=== PATIENT | female | born 1960 | race Caucasian/White ===

== ENCOUNTER → 2018-09-23 | Outpatient (CLI) | payer OTHER, SELFPAY ==
--- NOTE | 2018-09-23 14:41 | RAD_ITS ---
STUDY: X-RAY - LUMBAR SPINE REASON FOR EXAM: Female, 58 years old. Back pain TECHNIQUE: 5 view(s) of the lumbar spine were obtained. COMPARISON: None FINDINGS: There is straightening of the normal lumbar lordosis. There is no substantial scoliosis. There is a normal alignment of the vertebrae. Normal vertebral bodies and endplates. Mild degenerative changes at L2-L3 and L4-L5.There is no demonstrated fracture. The soft tissue structures are unremarkable. RAD/L/S Spine Min 4 Views IMPRESSION: No acute abnormality. Essentially unremarkable for age. Electronically Signed: Valeriy Riggs MD at 15:00 EDT , Service support ,
== END | disposition home or self-care (01) ==
LOC: HPRAD 14:40
PROVIDERS: Family Provider Internal Medicine; PCP Internal Medicine; Referring Provider Internal Medicine; Visit Provider Internal Medicine
DX: M54.16 Radiculopathy, lumbar region (principal)
CPT/HCPCS: 72110

== ENCOUNTER → 2018-10-01 | Outpatient (CLI) | payer OTHER, SELFPAY ==
--- NOTE | 2018-10-01 12:04 | RAD_ITS ---
STUDY: X-RAY - PELVIS AND LEFT HIP REASON FOR EXAM: Hip pain. TECHNIQUE: 2 views of the pelvis and hip. COMPARISON: None. FINDINGS: Normal visualized soft tissue structures. Normal bilateral iliac wings, sacroiliac joints and visualized sacrum. Normal bilateral superior and inferior pubic rami. Normal pubic symphysis. Normal bilateral ischial tuberosities. There is mild left hip arthrosis with marginal osteophytes of the femoral head and acetabulum, and mild narrowing of the central hip joint. RAD/HIP, UNI W/ Pelvis 2-3 Views IMPRESSION: Mild left hip arthrosis. Electronically Signed: Franklin Dietz MD at 14:35 EDT Tel , Service support ,
== END | disposition home or self-care (01) ==
LOC: HPRAD 12:02
PROVIDERS: Family Provider Internal Medicine; PCP Internal Medicine; Referring Provider Internal Medicine; Visit Provider Internal Medicine
DX: M25.552 Pain in left hip (principal)
CPT/HCPCS: 73502

== ENCOUNTER → 2018-10-11 | Outpatient (CLI) | payer OTHER, SELFPAY ==
--- NOTE | 2018-10-11 09:49 | STRESSREP_ITS ---
Stress Test Report Exercise myocardial perfusion stress test. 58-year-old lady with a history of chest pain. Stress protocol: Resting EKG demonstrates sinus rhythm with a rate of 61 bpm normal intervals are noted resting blood pressures 118/78 mmHg. The patient exercised according to regular Sebas protocol for total duration of 9 minutes the maximum heart rate was 164 bpm which was 101% of maximum predicted heart rate the maximum workload was 10.4 metabolic equivalents. At rest there were no ST or T wave changes noted suggest ischemia at peak exercise upsloping ST changes were noted with no meet the criteria for ischemia. The resting blood pressure was 118/78 with a peak blood pressure 170/86. Rate pressure product was 27,500. Occasional enzo ature ventricular complexes were noted. The test was terminated due to leg fatigue no chest pain was noted. Myocardial perfusion protocol. 11.8 mCi of technetium 99m sestamibi was injected at rest. The patient exercised according to regular Sebas protocol for 9 minutes and at peak exercise 33.9 mCi of technetium 99m sestamibi was injected stress images were obtained stress and rest images were reconstructed and compared in the short axis vertical long horizontal long axis. Gated images were also obtained Perfusion SPECT analysis: Review of the stress images demonstrate normal uptake of tracer noted in all areas of the myocardium the resting images similarly demonstrate normal uptake of tracer noted in all the rest of the myocardium. No areas of reversibility are noted suggest ischemia no previous infarct is noted. Gated SPECT analysis: The gated ejection fraction is noted to be 80%. Conclusion: Normal exercise myocardial perfusion stress test at a high workload. Preserved ejection fraction. Good functional aerobic capacity.
== END | disposition home or self-care (01) ==
PROVIDERS: Family Provider Internal Medicine; PCP Internal Medicine; Referring Provider Internal Medicine; Visit Provider Internal Medicine
DX: K76.0 Fatty (change of) liver, not elsewhere classified (principal); R07.9 Chest pain, unspecified
CPT/HCPCS: 78452; 93017; A9500; A4216

== ENCOUNTER → 2018-11-02 09:27 | Outpatient (CLI) | payer OTHER, SELFPAY ==
--- NOTE | 2018-11-02 09:31 | BI_ITS ---
MAMMOGRAPHY - BILATERAL SCREENING 3-D TOMOSYNTHESIS REASON FOR EXAM: Female, 58 years old. Bilateral Screening 3-D tomosynthesis PERTINENT HISTORY: No significant family history. TECHNIQUE: 2-D mammograms and 3-D Tomosynthesis of the breast (s) were performed. CAD was performed. COMPARISON: No comparison mammograms available at this time. If any prior films become available, an addendum to this report can be generated. FINDINGS: The breast composition is heterogeneously dense that can obscure small breast masses. Scattered benign calcifications are seen. No dense spiculated masses or suspicious microcalcifications are identified. No architectural distortion is identified. There is no skin thickening or retraction. BI/SCREEN MAMM (CAD) W/REBA BILAT IMPRESSION: No mammographic signs of malignancy. Routine yearly mammograms recommended. ASSESSMENT CATEGORY: BIRADS Category 2: Benign. A letter regarding these results will be sent to the patient by the facility within 30 days. FOLLOW UP RECOMMENDATION: Yearly follow up mammogram recommended. (A) Approximately 10% of breast cancers are not detected by mammography. A normal mammogram should not delay biopsy of a clinically suspicious abnormality. Electronically Signed: Zuhair Marc MD at 14:12 EDT , Service support ,
--- NOTE | 2018-11-02 09:31 | US_ITS ---
STUDY: ABDOMINAL ULTRASOUND - RIGHT UPPER QUADRANT REASON FOR VISIT: Female, 58 years old. Fatty liver TECHNIQUE: Ultrasound evaluation of the right upper quadrant was performed with real-time and static carlson-scale imaging. TECHNICAL QUALITY: Limited. Examination limited due to a combination of factors including obesity and bowel gas. COMPARISON: None. FINDINGS: Liver: The liver measures 14.8 cm. There is increased echogenicity consistent with fatty infiltration. The bile ducts are within normal limits. There is hepatic color flow. The direction of portal flow is hepatopetal. There is no demonstrated mass lesion. Gallbladder: Normal distended gallbladder. The gallbladder wall measures 2.4 mm. There is a negative sonographic Armijo's sign. There is no pericholecystic fluid. There are no gallstones. Common Bile Duct (C.B.D.): The common bile duct measures 2.9 mm. Pancreas: Normal size of the head, body and tail of the pancreas. There is normal echogenicity of the pancreas. There is no demonstrated pancreatic mass or cyst. Right Kidney: Normal size of the right kidney. The right kidney measures 10.8 cm. Normal renal cortex. The right cortex measures 1.3 cm. Tiny 8 mm cyst. There is no right hydronephrosis. US/Liver IMPRESSION: Fatty liver. No acute abnormality. Electronically Signed: Valeriy Riggs MD at 17:12 EDT , Service support ,
--- NOTE | 2018-11-02 10:00 | BD_ITS ---
STUDY: DUAL ENERGY X-RAY ABSORPTIOMETRY / DXA REASON FOR EXAM: Female, 58 years old. The patient is postmenopausal. No loss of height. TECHNIQUE: Bone Mineral Density (BMD) measurements of lumbar spine and bilateral hips were obtained. COMPARISON: None. FINDINGS: Lumbar Spine (L1-L4): g/cm2 (1.206) / T-score (0.3) / Z-score (1.5) Findings are suggestive of normal bone density with a low fracture risk. Left Femur Total: g/cm2 (1.089) / T-score (0.6) / Z-score (1.6) Left Femoral Neck: g/cm2 (1.083) / T-score (0.3) / Z-score (1.5) Right Femur Total: g/cm2 (1.081) / T-score (0.6) / Z-score (1.5) Right Femoral Neck: g/cm2 (1.111) / T-score (0.5) / Z-score (1.7) BD/Dexa Bone Density Study IMPRESSION: The patient is considered normal as outlined below according to World Mike Organization (WHO) criteria with a low fracture risk. Reference Information: The T-score is the number of standard deviations above or below the standard which is normal for young adults at their peak bone mineral density. The World Health Organization (WHO) interprets the T-scores as follows: Above -1 Normal bone density Between -1 and -2.5 Osteopenia Equal to / or below -2.5 Osteoporosis As a practical clinical guideline, osteopenia may be graded as follows: Mild -1 through -1.5 Moderate -1.6 through -2.0 Severe -2.1 through -2.4 The Z-score is the number of standard deviations above or below age-matched controls. A Z-score of less than -1.5 would be considered abnormal. References: 1. NIH Osteoporosis and Related Bone Diseases http://www.osteo.org 2. International Society for Clinical Densitometry http://www.iscd.org 3. National Osteoporosis Foundation http://www.nof.org Electronically Signed: Jose Ureña, at 9:14 EDT , Service support ,
== END ==
PROVIDERS: Family Provider Internal Medicine; PCP Internal Medicine; Referring Provider Internal Medicine; Visit Provider Internal Medicine
DX: K76.0 Fatty (change of) liver, not elsewhere classified (principal); Z78.0 Asymptomatic menopausal state; Z12.31 Encounter for screening mammogram for malignant neoplasm of breast
CPT/HCPCS: 76705; 77063; 77067; 77080

== ENCOUNTER → 2019-03-02 | Outpatient (CLI) | payer OTHER, SELFPAY ==
--- NOTE | 2019-03-02 10:10 | RAD_ITS ---
STUDY: X-RAY - LEFT TIBIA AND FIBULA REASON FOR EXAM: Female, 59 years old. Trauma TECHNIQUE: 3 view(s) of the tibia and fibula were obtained. COMPARISON: None. FINDINGS: Normal visualized tibia. Normal visualized fibula. Diffuse soft tissue swelling of the lateral calf.. RAD/Tibia & Fibula 2 Views IMPRESSION: Soft tissue swelling of the lateral calf without evidence for acute fracture Electronically Signed: Jayy Gregg MD at 17:22 EST , Service support ,
== END | disposition home or self-care (01) ==
LOC: HPRAD 10:02
PROVIDERS: Family Provider Internal Medicine; PCP Internal Medicine; Referring Provider Nurse Practitioner; Visit Provider Nurse Practitioner
DX: M79.605 Pain in left leg (principal)
CPT/HCPCS: 73590

== ENCOUNTER → 2019-03-08 13:47 | Outpatient (CLI) | payer OTHER, SELFPAY ==
--- NOTE | 2019-03-08 13:50 | VDLE_ITS ---
Reason For Study: LLE SWELLING RIGHT LEFT CFV is compressible, spontaneous, phasic, GSV is normal. competent and demonstrates normal CFV is compressible, spontaneous, phasic, augmentation. competent, and demonstrates normal Procedure augmentation. Exam performed in department. FV is compressible, spontaneous, phasic, The exam was diagnostic. competent and demonstrates normal A preliminary report was called and/or faxed augmentation. to DR. GALLOWAY @ [phone] @ 2:07 PM. POP V is compressible, spontaneous, phasic, competent and demonstrates normal augmentation. T/P Trunk is compressible. PTV is compressible. LT PerV is compressible. NON-vascular structure noted on left lateral/proximal calf C/W hematoma. Interpretation Summary Deep veins of the left lower extremity are patent and compressible segmentally. There is no evidence of left lower extremity deep vein thrombosis. Valvular competence appears intact within the proximal deep venous system on the left . The left great saphenous vein appears patent and compressible segmentally. A non-vascular, hypoechoic structure is noted on the left lateral, proximal calf, which may represent a hematoma or seroma. Clinical correlation is advised. Ordering Physician: Lynn Galloway Referring Physician: Lynn Galloway Performed By: Nadine Branch, NICHOLAS, RVT
== END ==
PROVIDERS: Family Provider Internal Medicine; PCP Internal Medicine; Referring Provider Internal Medicine; Visit Provider Internal Medicine
DX: M79.89 Other specified soft tissue disorders (principal)
CPT/HCPCS: 93971

== ENCOUNTER 2019-04-19 12:30 | Outpatient (RCR) | payer OTHER, SELFPAY ==
--- NOTE | 2019-03-15 13:05 | HP.PTEVAL_ITS ---
Patient's Visit Information DILIA SPENCER is a 59 year old F referred to Physical Therapy by Lynn Martel DO with a diagnosis of L hip pain. Date of Evaluation: 03/15/19 Physical Therapist: Mark Espinoza, JASONT, OCS, CSCS - Visit Plan Frequency: 2-3x /Week Duration: 4-6 Weeks Plan: 2-3x/week for 4-6 weeks for. hip IR and mobs for ROM, sTM to hip and ITB adn knee for fluid dynamics as needed. Strengthening L hip and LE adn progress to HEP. 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 Next visit if better go right to strengthening hip OR STM if still hurting. - Subjective Findings: I have OA in L hip aggravated by recent fall 2 weeks ago [place] and R foot caught on root. Had some popping in hip prior and catching but functionally good. Enjoys riding horses adn that was slightly tough prior. Since fall has constant ache and pain and sometimes sharp. NWB is OK. Getting up from chair feels ring around L hip laterally. L grin can hurt. Daily pain to 5/10 twinges to 8/10. Moving just right causes that, bent over at [employer] and stadning up caused sharp pain. Sleep is OK. 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 Has to shift around alot. 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 Basic ADLs are getting done, avoids cooking adn cleaning but not because of this. 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 - Pain L hip Pain Intensity (Out of 10): 4 Pain Intensity Range: 0, 8 - Objective Walks and steps normal today with slight L hip pain. Good balance. LB AROM WFL and without pain. Hip ROM slightly limited L IR vs R otherwise WFL but tightness in quad, pirformis, HS and gastroc B. bruising noted up and down L leg to foot and swelling(Had US adn no blood clots). reflexes 2/3 patella and achilles. Tender to touch L st and anterior knee. Sensation to gross light touch WNL L LE. - hip scouring. + FADDIR. - KATI - Goals Goal 1:: Full L hip IR without pain Goal Time Frame: 2-4 Weeks Goal 2:: I approp HEP for hip strength and ROM to minimize future problems Goal Time Frame: 4-6 Weeks Goal 3:: Patient squat and stoop and recover without pain in hip Goal Time Frame: 4-6 Weeks Goal 4:: Pt back to 100% normal acitivties Goal Time Frame: 4-6 Weeks Goal 5:: Plan to get into gym vs home overall general workout. Goal Time Frame: 4-6 Weeks - Rehabilitation Potential Physical Therapy Diagnosis: L hip pain likely OA Rehabilitation Potential: Fair - Anticipated Interventions Patient/Client Instruction: Educate patient on: Condition, Plan of Care For the Purpose of:: To decrease pain, To increase ROM, To improve muscle performance and motor function, To improve ability of physical actions for home/community/work/leisure Therapeutic Exercise to Include: Strength training, Flexibilty training, Passive ROM, Active ROM For the Purpose of:: To decrease pain, To improve nutrient delivery to tissue, To improve muscle performance and motor function, To improve ability of physical actions for home/community/work/leisure Manual Therapy Techniques to Include: Passive ROM, Soft tissue mobilization For the Purpose of:: To decrease pain, To increase ROM Thermo therapy (hot pack): Yes For the Purpose of:: To improve nutrient delivery to tissue Thank you for the opportunity to evaluate your patient. For Medicare and Medicare HMO plans, please review the plan of care and approve it. It will need to be FAXED BACK to us at [phone] for Medicare purposes. For Medicare only, by signing this I certify the plan of care. Please let me know if there are questions or concerns regarding this plan of care. Physician Signature: Date:
--- NOTE | 2019-03-31 13:28 | HP.PTREVAL ---
Lynn Martel, DO, It has been my pleasure to treat DILIA SPENCER over the last 7 visits for L hip pain. Please see the progress note below for an update on the physical therapy plan of care! Subjective: Overall felt better initially and optimistic and last two days have been worse. [place] bad today but inhibitory technique helped with stretches. Still gets catching sharp pain in hips at times quickly. Wants to continue 3 more weeks. Still [place] and is scared it will pop. Objective/Function: Walking without antalgia but still has some L hip anerior tightness/stiffness today worse ascending steps but I and reciprocal. Hip IR L 20 degrees adn R 32 degrees. Pain on L transiently. OVERALL MAKING SLOW STEADY PROGRESS BUT NOT QUICKLY HOPED FOR SOFT TISSUE, QUESTIONABLE LABRAL PATHOLOGY BASED ON CATCHES IN HIP . APPROPRIATE TO COTNINUE 3 MORE WEEKS TOWARD GOALS WITH FAIR PROGNOSIS FOR COTNINUED SLOW IMPROVEMENT. Plan Plan: 3X/WEEK FOR 3 WEEKS FOR... 1. continue inhibitions anteriorly at L hip and medially and leg pull/PROM L hip. 2. progress to I gym workout for LE adn general fitness that patient can continue herself for next year. Goals Goal 1:: Full L hip IR without pain Goal Time Frame: 2-4 Weeks Goal Progress: Not Progressing Goal 2:: I approp HEP for hip strength and ROM to minimize future problems Goal Time Frame: 4-6 Weeks Goal Progress: Goal Met Goal 3:: Patient squat and stoop and recover without pain in hip Goal Time Frame: 4-6 Weeks Goal Progress: slighty better. Goal 4:: Pt back to 100% normal acitivties Goal Time Frame: 4-6 Weeks Goal Progress: not stooping or pivot. Goal 5:: Plan to get into gym vs home overall general workout. Goal Time Frame: 4-6 Weeks Goal Progress: Progressing Anticipated Interventions Patient/Client Instruction: Educate patient on: Condition, Plan of Care For the Purpose of:: To decrease pain, To increase ROM, To improve muscle performance and motor function, To improve ability of physical actions for home/community/work/leisure Therapeutic Exercise to Include: Strength training, Flexibilty training, Passive ROM, Active ROM For the Purpose of:: To decrease pain, To improve nutrient delivery to tissue, To improve muscle performance and motor function, To improve ability of physical actions for home/community/work/leisure Manual Therapy Techniques to Include: Passive ROM, Soft tissue mobilization For the Purpose of:: To decrease pain, To increase ROM Thermo therapy (hot pack): Yes For the Purpose of:: To improve nutrient delivery to tissue Please do not hesitate to contact me at [phone] by phone or if you have questions or concerns regarding this new plan of care! Sincerely, Mark Espinoza, DPT, OCS, CSCS
--- NOTE | 2019-06-02 09:35 | HP.PTDCNRP_ITS ---
HP - Discharge Summary (1) - Patient Information DILIA SPENCER was seen in my office for initial evaluation on 03/15/19. The following Plan of Care was established for this patient: Initial Frequency: 2-3x /Week Initial Duration: 4-6 Weeks - Anticipated Interventions Patient/Client Instruction: Educate patient on: Condition, Plan of Care For the Purpose of:: To decrease pain, To increase ROM, To improve muscle pe rformance and motor function, To improve ability of physical actions for home/community/work/leisure Therapeutic Exercise to Include: Strength training, Flexibilty training, Passive ROM, Active ROM For the Purpose of:: To decrease pain, To improve nutrient delivery to tissue, To improve muscle performance and motor function, To improve ability of physical actions for home/community/work/leisure Manual Therapy Techniques to Include: Passive ROM, Soft tissue mobilization For the Purpose of:: To decrease pain, To increase ROM Thermo therapy (hot pack): Yes For the Purpose of:: To improve nutrient delivery to tissue This patient was last seen in our office 04/19/19. Pertinent comments regarding their Physical therapy will appear below: Pt seen 10 visits of POC adn was 50% better. she was not happy with progress and wished to return to doctor for MRI. She was to chris fter that but has not done so. At this point, it has been ove a month and I will discontinue due to nonattendance. At this point I will be discontinuing this patient from physical therapy. I would be happy to see this patient again in the future if found appropriate by the physician. Thank you! Mark Espinoza, DPT, OCS, CSCS
== END 2019-04-19 19:00 | disposition home or self-care (01) ==
LOC: PT 12:30
PROVIDERS: Family Provider Internal Medicine; PCP Internal Medicine; Referring Provider Internal Medicine; Visit Provider Internal Medicine
DX: M25.552 Pain in left hip (principal)
CPT/HCPCS: 97110; 97140; 97162; 97530

== ENCOUNTER → 2019-04-25 17:39 | Outpatient (CLI) | payer OTHER, SELFPAY ==
--- NOTE | 2019-04-25 17:51 | MRI_ITS ---
HISTORY: Left hip pain. Catching sensation for months. Fall 2 weeks ago landing on knees. Technique: Coronal T1 through both hips, Coronal STIR through both hips, axial STIR through both hips, axial STIR through the left hip, axial gradient fat sat through the left hip, sagittal gradient fat sat through the left hip were obtained. 205 images. X-rays of the pelvis and of the left hip are from October 01, 2018 Findings: Gluteus medius tendinosis is present bilaterally. It is slightly more severe on the right than the left. Small hip effusions are present bilaterally. These are similar. Joint space narrowing is present within both hips. Subcutaneous edema is present bilaterally. The urinary bladder is decompressed. The uterus is atrophic. A right ovarian cyst measures 2.3 cm. No ascites. No adenopathy. Other than the gluteus medius at its insertion on the greater trochanters, myofascial signal is normal. No bones are fractured. 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 This is manifested by small hip effusions, cartilaginous thinning, and some osteophytes. Is also fairly symmetric bilaterally. at 0619 Reported and signed by: Serafin Solomon MD Electronically Signed: eSrafin Solomon MD at 6:18 EST Tel , Service support ,
== END ==
PROVIDERS: Family Provider Internal Medicine; PCP Internal Medicine; Referring Provider Internal Medicine; Visit Provider Internal Medicine
DX: M25.552 Pain in left hip (principal)
CPT/HCPCS: 73721

== ENCOUNTER → 2019-06-13 | Outpatient (CLI) | payer OTHER, SELFPAY ==
--- NOTE | 2019-06-13 14:23 | US_ITS ---
STUDY: ULTRASOUND OF THE FEMALE PELVIS - COMPLETE REASON FOR EXAM: Female, 59 years old. LT OVARIAN CYST LMP: TECHNIQUE: Transabdominal TECHNICAL QUALITY: Adequate. COMPARISON: None. FINDINGS: The uterus is anteverted and is in a midline position. The uterus measures 7.0 x 3.4 x 2.4 cm. Normal uterine cervix. The endometrium measures 3 mm in thickness, and is hyperechoic. There is no demonstrated endometrial mass. There is no demonstrated myometrial mass. I.U.D. - The patient does not have an I.U.D. The right ovary is visualized. The right ovary measures 3.6 x 2.6 x 1.8 cm. There is no right ovarian cyst or ovarian mass. There is no visualized right adnexal mass or complex lesion. There is normal arterial and normal venous vascularity. The left ovary is visualized. The left ovary measures 1.7 x 1.2 x 0.8 cm. There is no left ovarian cyst or ovarian mass. There is no visualized left adnexal mass or complex lesion. There is normal arterial and normal venous vascularity. There is no fluid in the cul-de-sac. The pre void volume of the bladder was ml. The post void volume of the bladder was ml. Polycystic ovary disease: No. US/Pelvic (Non ) IMPRESSION: Normal female pelvis. Electronically Signed: Ollie Hogan MD at 16:10 EST Tel , Service support ,
== END | disposition home or self-care (01) ==
PROVIDERS: PCP Internal Medicine; Referring Provider Internal Medicine; Visit Provider Internal Medicine
DX: N83.209 Unspecified ovarian cyst, unspecified side (principal)
CPT/HCPCS: 76856

== ENCOUNTER → 2019-11-09 | Outpatient (CLI) | payer OTHER, SELFPAY ==
--- NOTE | 2019-11-09 14:08 | CDU_ITS ---
Reason For Study: Carotid Stenosis Rt. Velocities/BP Lt. Velocities/BP Prox CCA 79/18 cm/sec. Prox CCA 105/25 cm/sec. Mid CCA 74/23 cm/sec. Mid CCA 78/22 cm/sec. Dist CCA 78/25 cm/sec. Dist CCA 81/19 cm/sec. Prox ICA 64/19 cm/sec. Prox ICA 81/22 cm/sec. Mid ICA 84/33 cm/sec. Mid ICA 72/26 cm/sec. Dist ICA 120/45 cm/sec. Dist ICA 122/43 cm/sec. Rt. ICA/CCA = 1.6. Lt. ICA/CCA = 1.6. Prox ECA 100/17 cm/sec. Prox ECA 94/11 cm/sec. Rt. Vert. 54/17 cm/sec. Lt. Vert. 66/19 cm/sec. Right Extracranial There is heterogeneous, irregular atherosclerotic plaque noted in the right common carotid artery. There is homogeneous, smooth atherosclerotic plaque noted in the right internal carotid artery. There is intimal thickening but no significant atherosclerotic plaque noted in the right external carotid artery. Antegrade flow is noted in the right vertebral artery. Left Extracranial There is heterogeneous, irregular atherosclerotic plaque noted in the left common carotid artery. There is homogeneous, smooth atherosclerotic plaque noted in the left internal carotid artery. There is intimal thickening but no significant atherosclerotic plaque noted in the left external carotid artery. Antegrade flow is noted in the left vertebral artery. Procedure Carotid Duplex [id number]. Exam performed in department. Interpretation Summary Minimal calcific plaque at the proximal right internal carotid artery with less than 50% stenosis <50% stenosis right external carotid Minimal calcific plaque at the proximal left internal carotid with less than 50% stenosis. <50% stenosis left external carotid Patent and antegrade vertebrals bilaterally Ordering Physician: Lynn Martel Referring Physician: Lynn Martel Performed By: Roxann Whitten, RDCS, RVT
--- NOTE | 2019-11-09 15:00 | MRI_ITS ---
ACR Level 3 findings have been noted. An addendum which confirms receipt of the report will follow. STUDY: MRI BRAIN WITH AND WITHOUT CONTRAST REASON FOR EXAM: Female, 59 years old. follow up abnormal ct left posterior fossa TECHNIQUE: Standardized multiplanar fat and water weighted pulse sequences were obtained. IV 18cc dotarem was administered for the contrast portion of the examination. COMPARISON: None. FINDINGS: Normal size of the ventricles and extra-axial spaces for the patient''s age. Normal white matter tracts of the supratentorial brain. There is no evidence for recent intracranial ischemia or other cause of cytotoxic edema on diffusion weighted imaging (DWI). 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 There appears to be some mass effect upon the cerebellar hemisphere. It measures 26 x 59 mm in transverse dimensions. It does not enhance or demonstrate restricted diffusion. Normal bilateral basal ganglia. Normal thalami. There is no extra-axial fluid accumulation. Normal flow voids within the major intracranial circulation suggesting patency by spin echo criteria. Normal venous enhancement. There is no enhancing intra-axial or extra-axial abnormality. Normal sella turcica, pituitary gland, infundibular stalk, optic chiasm and hypothalamus. Normal tectal plate and pineal gland. Normal midbrain, abbe and medulla. Normal cerebellum. Normal basal cisterns. Normal bilateral temporal bones. Normal bilateral internal auditory canals. No demonstrated orbital abnormality, within the constraints of a routine brain study. Normal visualized paranasal sinuses. Normal calvarium and skull base. Normal visualized soft tissue structures. Normal visualized upper cervical spine. MRI/Brain W/WO Contrast IMPRESSION: Probable arachnoid cyst left posterior fossa. Otherwise no acute disease. Electronically Signed: Xavier Doran MD at 17:50 EDT , Service support ,
== END | disposition home or self-care (01) ==
LOC: MRI 14:06
PROVIDERS: PCP Internal Medicine; Referring Provider Internal Medicine; Visit Provider Internal Medicine
DX: I65.29 Occlusion and stenosis of unspecified carotid artery (principal); R90.89 Other abnormal findings on diagnostic imaging of central nervous system
CPT/HCPCS: 70553; 93880; A9575

== ENCOUNTER → 2020-03-21 07:48 | Outpatient (CLI) | payer BC, SELFPAY ==
--- NOTE | 2020-03-21 07:51 | US_ITS ---
STUDY: ABDOMINAL ULTRASOUND - RIGHT UPPER QUADRANT REASON FOR VISIT: Female, 60 years old FATTY LIVER TECHNIQUE: Ultrasound evaluation of the right upper quadrant was performed with real-time and static carlosn-scale imaging. TECHNICAL QUALITY: Adequate. COMPARISON: None. FINDINGS: Liver: The liver measures 14.7 cm. There is fatty echogenicity of the liver. The bile ducts are within normal limits. There is hepatic color flow. The direction of portal flow is hepatopetal. There is no demonstrated mass lesion. Gallbladder: Normal distended gallbladder. The gallbladder wall measures 2 mm. There is a negative sonographic Armijo''s sign. There is no pericholecystic fluid. There are no gallstones. There is a possible 5 mm polyp. Common Bile Duct (C.B.D.): The common bile duct measures 3 mm. Pancreas: Limited visualization of the pancreas. Questionable hypoechoic 1.2 x 2.3 x 0.6 cm nodule. Right Kidney: Normal size of the right kidney. The right kidney measures 11.5 x 4.4 x 4.8 cm. Normal renal cortex. The right cortex measures 1.3 cm. There are cysts measuring up to 8mm. There is no right hydronephrosis. US/Liver IMPRESSION: Questionable hypoechoic pancreatic nodule. Right renal cysts. Possible gallbladder polyp. Fatty liver. Electronically Signed: Balwinder Balderrama DO at 15:44 EST Tel [phone], Service support ,
--- NOTE | 2020-03-21 07:52 | BI_ITS ---
MAMMOGRAPHY - BILATERAL SCREENING REASON FOR EXAM: Female, 60 years old. Routine annual screening examination. PERTINENT HISTORY: Screening TECHNIQUE: Digital bilateral breast reba (3D mammographic acquisition) in the CC and MLO projections. 2-D mediolateral oblique (MLO) and craniocaudad (CC) views of both breasts were obtained. CAD: Full Field Digital Mammography with Computer Added Detection was performed. COMPARISON: 11/02/2018 FINDINGS: Breast Composition: Heterogeneous There are no dominant masses or suspicious calcifications. No other significant abnormalities are identified. BI/SCREEN MAMM (CAD) W/REBA BILAT IMPRESSION: Stable bilateral screening mammogram. Yearly follow-up mammogram recommended. (A) ASSESSMENT CATEGORY: BIRADS Category 1: Negative. A letter regarding these results will be sent to the patient by the facility within 30 days. Approximately 10% of breast cancers are not detected by mammography. A normal mammogram should not delay biopsy of a clinically suspicious abnormality. [id number] Electronically Signed: Jesse Hsu, at 11:00 EST Tel , Service support ,
== END ==
PROVIDERS: PCP Internal Medicine; Referring Provider Internal Medicine; Visit Provider Internal Medicine
DX: K76.0 Fatty (change of) liver, not elsewhere classified (principal); Z12.31 Encounter for screening mammogram for malignant neoplasm of breast
CPT/HCPCS: 76705; 77063; 77067

== ENCOUNTER → 2020-04-09 13:47 | Outpatient (CLI) | payer BC, SELFPAY ==
--- NOTE | 2020-04-09 13:51 | MRI_ITS ---
STUDY: MRI ABDOMEN WITH AND WITHOUT CONTRAST REASON FOR EXAM: Female, 60 years old. abnormal liver ultrasound, pancreatic mass, no pain TECHNIQUE: Standardized fat and water weighted pulse sequences were obtained in all 3 orthogonal planes post contrast administration. IV dotarem 18ml was administered for the contrast portion of the examination. COMPARISON: Ultrasound 03/21/2020 FINDINGS: The visualized lung bases are unremarkable. The visualized portions of the heart are within normal limits. Normal liver. Normal gallbladder and extrahepatic biliary system. Normal spleen. Normal pancreas. Normal bilateral adrenal glands. Normal right kidney. Normal left kidney. Normal visualized stomach. Normal small intestine. Normal colon. There is non-visualization of the appendix. Normal abdominal aorta. Normal inferior vena cava. Normal retroperitoneum. Normal abdominal wall. Normal osseous structures. MRI/MRI Abd WITH and W/O Contrast IMPRESSION: Normal unenhanced and enhanced MRI of the abdomen. In particular, no evidence of pancreatic mass as suggested on recent ultrasound. Correlation with another modality namely pancreas protocol CT is recommended. Electronically Signed: Ollie Hogan MD at 16:06 EST Tel , Service support ,
== END ==
PROVIDERS: PCP Internal Medicine; Referring Provider Internal Medicine; Visit Provider Internal Medicine
DX: K86.89 Other specified diseases of pancreas (principal)
CPT/HCPCS: 74183; A9575

== ENCOUNTER → 2022-08-19 | Outpatient (CLI) | payer BC, SELFPAY ==
--- NOTE | 2022-08-19 15:04 | BI_ITS ---
MAMMOGRAPHY - BILATERAL SCREENING REASON FOR EXAM: Female, 62 years old. Routine annual screening examination. PERTINENT HISTORY: Non-contributory. TECHNIQUE: Digital bilateral breast reba (3D mammographic acquisition) in the CC and MLO projections. 2-D mediolateral oblique (MLO) and craniocaudad (CC) views of both breasts were obtained. CAD: Full Field Digital Mammography with Computer Added Detection was performed. COMPARISON: Comparison is made with prior study March 21, 2020 and November 02, 2018. FINDINGS: Breast Composition: The breasts are heterogeneously dense, which may obscure small masses. There are no dominant masses or suspicious calcifications. Stable small benign-appearing bilateral axillary lymph nodes. No other significant abnormalities are identified. There has been no significant change since the prior study. BI/SCRN MAMM (CAD)W/REBA BILAT IMPRESSION: Stable bilateral screening mammogram. Yearly follow-up mammogram recommended. (A) ASSESSMENT CATEGORY: BIRADS Category 2: Benign. A letter regarding these results will be sent to the patient by the facility within 30 days. Approximately 10% of breast cancers are not detected by mammography. A normal mammogram should not delay biopsy of a clinically suspicious abnormality. [id number] Electronically Signed: Jose Ureña MD at 8:14 EDT ,
--- NOTE | 2022-08-19 15:07 | BD_ITS ---
STUDY: DUAL ENERGY X-RAY ABSORPTIOMETRY / DXA REASON FOR EXAM: Female, 62 years old. Z780 -- postmenopausal TECHNIQUE: Bone Mineral Density (BMD) measurements of lumbar spine and bilateral hips were obtained. COMPARISON: Comparison is made with prior examination of November 02, 2018. FINDINGS: Lumbar Spine (L1-L4): g/cm2 (1.115) / T-score (0.6) / Z-score (2.3) Findings are suggestive of normal bone density with a low fracture risk. Left Femur Total: g/cm2 (1.021) / T-score (0.6) / Z-score (1.8) Left Femoral Neck: g/cm2 (0.968) / T-score (1.1) / Z-score (2.5) Right Femur Total: g/cm2 (1.010) / T-score (0.6) / Z-score (1.7) Right Femoral Neck: g/cm2 (1.046) / T-score (1.8) / Z-score (3.2) The T-Scores on the most recent prior examination were: Lumbar Spine (L1-L4): There has been worsening of bone density since the previous examination. Left Femur Total: which represents no significant change. . Right Femur Total: which represents a worsening of 0.3%. BD/Dexa Bone Density Study IMPRESSION: The patient is considered normal as outlined below according to World Mike Organization (WHO) criteria with a low fracture risk. There has been worsening of bone density since the previous examination. Reference Information: The T-score is the number of standard deviations above or below the standard which is normal for young adults at their peak bone mineral density. The World Health Organization (WHO) interprets the T-scores as follows: Above -1 Normal bone density Between -1 and -2.5 Osteopenia Equal to / or below -2.5 Osteoporosis As a practical clinical guideline, osteopenia may be graded as follows: Mild -1 through -1.5 Moderate -1.6 through -2.0 Severe -2.1 through -2.4 The Z-score is the number of standard deviations above or below age-matched controls. A Z-score of less than -1.5 would be considered abnormal. References: 1. NIH Osteoporosis and Related Bone Diseases www osteo.org 2. International Society for Clinical Densitometry www iscd.org 3. National Osteoporosis Foundation www nof.org Electronically Signed: Jose Ureña MD at 14:51 EDT ,
== END | disposition home or self-care (01) ==
PROVIDERS: PCP Internal Medicine; Referring Provider Internal Medicine; Visit Provider Internal Medicine
DX: Z12.31 Encounter for screening mammogram for malignant neoplasm of breast (principal); Z78.0 Asymptomatic menopausal state
CPT/HCPCS: 77063; 77067; 77080

== ENCOUNTER → 2022-08-29 | Outpatient (CLI) | payer BC, SELFPAY ==
[2022-09-08 12:08] LABS: HPV APTIMA, High Risk Negative (Negative)
== END | disposition home or self-care (01) ==
LOC: LABSPEC 10:15
PROVIDERS: PCP Internal Medicine; Visit Provider Nurse Practitioner Women's Health
DX: Z12.4 Encounter for screening for malignant neoplasm of cervix (principal)
CPT/HCPCS: 87624; 88175; G0145

== ENCOUNTER → 2022-10-09 | Outpatient (CLI) | payer BC, SELFPAY ==
--- NOTE | 2022-10-09 07:58 | ECHOD_ITS ---
Reason For Study: AORTIC INSUFFICIENCY Procedure This was a 2D Doppler, Color Flow transthoracic echocardiogram. Exam performed in department. Left Ventricle Normal LV size. The estimated ejection fraction is 70 %. Normal diastology for age. No regional wall motion abnormalities noted. Right Ventricle Normal RV size. Normal systolic function. Atria Normal left atrium. Normal right atrium. No doppler evidence for ASD. Mitral Valve There is no mitral valve stenosis. Trivial mitral valve insufficiency. Tricuspid Valve There is no tricuspid stenosis. Trivial tricuspid valve insufficiency. Unable to estimate RV systolic pressure due to insufficient tricuspid regurgitant envelope. Aortic Valve Trisinus/trileaflet aortic valve. There is no aortic stenosis. Mild (1+) aortic valve insufficiency. Pulmonic Valve There is no pulmonic valvular stenosis. No pulmonic valve insufficiency. Great Vessels Normal aortic root. Pericardium/Pleural No pericardial effusion. MMode/2D Measurements & Calculations LVIDd: 4.4 cm IVSd: 0.96 cm LVOT diam: 2.0 cm LVIDs: 3.0 cm LVPWd: 0.93 cm LVOT area: 3.1 cm2 RVDd: 2.8 cm FS: 31.3 % Ao root diam: 2.9 cm LAV(MOD-bp): 48.0 ml LVAd ap4: 23.1 cm2 LAV(MOD-bp) Indexed: 24.8 ml/m2 LVLd ap4: 7.0 cm LAV(MOD-sp2): 45.4 ml EDV(MOD-sp4): 63.8 ml LAV(MOD-sp4): 46.8 ml EDV(sp4-el): 64.5 ml LVAs ap4: 12.2 cm2 LVLs ap4: 5.6 cm ESV(MOD-sp4): 22.2 ml ESV(sp4-el): 22.5 ml EF(MOD-sp4): 65.2 % EF(sp4-el): 65.1 % SV(MOD-sp4): 41.6 ml SV(sp4-el): 42.0 ml LA A4 area: 17.5 cm2 LA dimension(2D): 3.7 cm RA A4 area: 16.7 cm2 Time Measurements MV dec time: 0.19 sec Doppler Measurements & Calculations MV E max narciso: 82.5 cm/sec Lat Peak E' Narciso: 9.8 cm/sec Med Peak E' Narciso: 7.9 cm/sec MV A max narciso: 93.6 cm/sec E/E' lat: 8.4 E/E' med: 10.5 MV E/A: 0.88 Ao V2 max: 202.9 cm/sec AI max narciso: 459.1 cm/sec LV V1 max: 120.8 cm/sec Ao max P.5 mmHg AI max P.3 mmHg LV V1 max P.8 mmHg Ao V2 mean: 142.0 cm/sec LV V1 mean P.0 mmHg Ao mean P.9 mmHg AI dec slope: 288.4 cm/sec2 LV V1 mean: 81.4 cm/sec Ao V2 VTI: 45.0 cm AI P1/2t: 466.3 msec LV V1 VTI: 28.7 cm AV (velocity ratio): 0.64 LUCIAN(I,D): 2.0 cm2 LUCIAN(V,D): 1.9 cm2 SV(LVOT): 89.9 ml PA V2 max: 103.8 cm/sec TR max narciso: 243.6 cm/sec TR max P.7 mmHg ECHO/Echo Complete Interpretation Summary The estimated ejection fraction is 70 %. Trivial mitral valve insufficiency. Mild (1+) aortic valve insufficiency. Ordering Physician: Lynn Martel Referring Physician: Lynn Martel Performed By: Nargis Ramirez RDCS
--- NOTE | 2022-10-09 07:58 | CDU_ITS ---
Reason For Study: Carotid stenosis Rt. Velocities/BP Lt. Velocities/BP Prox CCA 69.2/18.2 cm/sec. Prox CCA 89.1/28.6 cm/sec. Mid CCA 69.2/21.1 cm/sec. Mid CCA 62.6/24.8 cm/sec. Dist CCA 63.6/22 cm/sec. Dist CCA 64.5/25.8 cm/sec. Prox ICA 62.6/19.2 cm/sec. Prox ICA 61.7/25.8 cm/sec. Mid ICA 73/27.7 cm/sec. Mid ICA 79.6/33.3 cm/sec. Dist ICA 75.9/30.5 cm/sec. Dist ICA 64.5/23 cm/sec. Rt. ICA/CCA = 1.10. Lt. ICA/CCA = 1.23. Prox ECA 82.5/13.5 cm/sec. Prox ECA 88.1/14.5 cm/sec. Rt. Vert. 58.9/14.5 cm/sec. Lt. Vert. 41.9/16.3 cm/sec. Right Extracranial There is homogeneous, smooth atherosclerotic plaque noted in the right common carotid artery. There is heterogeneous, irregular atherosclerotic plaque noted in the right internal carotid artery. There is intimal thickening but no significant atherosclerotic plaque noted in the right external carotid artery. Antegrade flow is noted in the right vertebral artery. Left Extracranial There is homogeneous, smooth atherosclerotic plaque noted in the left common carotid artery. There is heterogeneous, irregular atherosclerotic plaque noted in the left internal carotid artery. There is intimal thickening but no significant atherosclerotic plaque noted in the left external carotid artery. Antegrade flow is noted in the left vertebral artery. Procedure This is a Carotid Duplex examination using B-mode, color flow and specral Doppler. Carotid Duplex [id number]. Exam performed in department. VL/Carotid Duplex Ultrasound Interpretation Summary Minimal plaque at the proximal right internal carotid artery with less than 50% stenosis Less than 50% stenosis right external carotid artery Heterogenous irregular plaque at the proximal left internal carotid artery with less than 50% stenosis Less than 50% stenosis left external carotid artery Patent and antegrade vertebral arteries bilaterally No change from the previous examination of November 09, 2019 Ordering Physician: Lynn Martel Referring Physician: Lynn Martel Performed By: Desi Mary RVT
== END | disposition home or self-care (01) ==
PROVIDERS: PCP Internal Medicine; Referring Provider Internal Medicine; Visit Provider Internal Medicine
DX: I35.1 Nonrheumatic aortic (valve) insufficiency (principal); R00.2 Palpitations; I65.29 Occlusion and stenosis of unspecified carotid artery
CPT/HCPCS: 93225; 93226; 93306; 93880

== ENCOUNTER → 2022-11-12 | Outpatient (CLI) | payer BC, SELFPAY ==
[2022-11-14 20:08] LABS: HPV APTIMA, High Risk Negative (Negative)
== END | disposition home or self-care (01) ==
LOC: LABSPEC 10:17
PROVIDERS: PCP Internal Medicine; Visit Provider Obstetrics & Gynecology
DX: Z12.4 Encounter for screening for malignant neoplasm of cervix (principal)
CPT/HCPCS: 87624; 88175; G0145

== ENCOUNTER 2023-01-27 13:30 | Outpatient (RCR) | payer BC, SELFPAY ==
--- NOTE | 2022-12-22 10:52 | HP.PTEVAL_ITS ---
Patient's Visit Information Visit Information Visit Information: DILIA SPENCER is a 62 year old F referred to Physical Therapy by Dr. Jef Luis MD with a diagnosis of Left Anterior THR 12/18/22. Date of Evaluation: 12/22/22 Physical Therapist: Candice Camacho DPT Visit Plan Frequency: 2x /Week Duration: 4 Weeks Plan: Left Anterior THR 12/18/22- Focus on functional mobility HEP Given IE: HR/TR, Weight Shifts, Seated Marching, SLR Subjective Subjective: Left THR- anterior approach by Dr. Luis 12/18/22- headed home same day of surgery- single story home with single step to enter- she is able to enter and exit. 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 Pain at its worst in the last 24 hours: 6/10- pain is located in the in incision area- mostly dull and achy- does have some pinching sensation. Agg: movement. Best: 0/10 Ease: rest, elevation, ice and pain medication. She is currently taking Tylenol, Meloxicam and Tramadol. No radiating pain- she does have some back pain that comes and goes. She does have some change in bowel or bladder- she is on a stool softener. No N/T in her toes. Sleep: she is her bed at night and sleeping in a chair during the day- not disturbed. She has a cane at home. PMHx: HTN Meds: Tylenol, Meloxicam, Tramadol, Lopressor, Lisinopril, Amlodipine, Aspirin, Stool Softener, Pepcid. Objective Objective: Posture: FH, RS- can correct but does not maintain throughout tx session Gait: FWW- step through gait pattern- straight cane- slightly antalgic- mild hip drop HR.TR: able with UE A support SLS: weight shift to the left Stairs: asc/desc 8'' recip with 2 HR ROM: WFL in all planes Strength: Core: Fair, Hip: Flexion: 3.2- can perform SLR x 2 without assistance- Extn: 32.3 Abd: 4-/5, Add: 4+/5, Knee: 4+/5, Ankle: 5/5 Observation: incision still covered Palpation: tender along anterior thigh Balance/Special Test Scores WOMAC Total Score: 51 WOMAC Percentatge: 46.8800 Goals Goal 1:: Patient will be I with HEP and progression Goal Time Frame: 4-6 Weeks Goal 2:: Patient will ambulate >300 feet with a normalized gait pattern without AD Goal Time Frame: 4-6 Weeks Goal 3:: Patient will asc/desc 8 stairs recip with no HR Goal Time Frame: 4-6 Weeks Goal 4:: Patient will report 80% improvement Goal Time Frame: 4-6 Weeks Goal 5:: Patient will straight leg raise x10 without A Goal Time Frame: 4-6 Weeks Rehabilitation Potential Physical Therapy Diagnosis: Patient presents s/p Left Anterior THR 12/18/22- she has decreased LE and core strength/stabilization, flex and muscular endurance leading to abnormal gait pattern and decreased ability to perform ADL's. Rehabilitation Potential: Good Anticipated Interventions Patient/Client Instruction: Educate patient on: Benefits of Fitness Program Therapeutic Exercise to Include: Strength training, Endurance training, Coordination, Agility training, Body mechanics, Postural training, Flexibilty training, Gait and locomotor training, Neuromotor development, Passive ROM, Active ROM, Dynamic Lumbar Stabilization and Scapular Strength/Stabilization For the Purpose of:: To improve muscle performance and motor function Functional Training to Include: Gait training Cryotherapy (ice pack, ice massage): Yes Thermo therapy (hot pack): Yes Ultrasound (thermal/non thermal): No Text: Thank you for the opportunity to evaluate your patient. For Medicare and Medicare HMO plans, please review the plan of care and approve it. It will need to be FAXED BACK to us at [phone] for Medicare purposes. For Medicare only, by signing this I certify the plan of care. Please let me know if there are questions or concerns regarding this plan of care. Physician Signature: Date:
== END 2023-01-27 19:00 | disposition home or self-care (01) ==
LOC: PT 13:30
PROVIDERS: PCP Internal Medicine; Referring Provider Specialist; Visit Provider Specialist
DX: Z96.642 Presence of left artificial hip joint (principal); F17.210 Nicotine dependence, cigarettes, uncomplicated; Z47.1 Aftercare following joint replacement surgery
CPT/HCPCS: 97110; 97162; 97164

== ENCOUNTER → 2023-04-08 | Outpatient (CLI) | payer BC, SELFPAY ==
--- NOTE | 2023-04-08 09:14 | US_ITS ---
STUDY: ABDOMINAL ULTRASOUND - RIGHT UPPER QUADRANT; ELASTOGRAPHY REASON FOR VISIT: Female, 63 years old. Fatty infiltration of the liver. Elevated LFTs. TECHNIQUE: Ultrasound evaluation of the right upper quadrant was performed with real-time and static carlson-scale imaging. Point quantification shear wave elastography was performed ([facility]). TECHNICAL QUALITY: Adequate. COMPARISON: Comparison is made with prior study March 21, 2020. FINDINGS: Liver: The liver measures 15.2 cm. There is increased echogenicity consistent with fatty infiltration. The bile ducts are within normal limits. There is hepatic color flow. The direction of portal flow is hepatopetal. There is no demonstrated mass lesion. Median liver stiffness measured 5.6 kPa. Gallbladder: Normal distended gallbladder. The gallbladder wall measures 2.8 mm. There is a negative sonographic Armijo''s sign. There is no pericholecystic fluid. There are no gallstones. 2.8 mm gallbladder polyp. Common Bile Duct (C.B.D.): The common bile duct measures 4.8 mm. Pancreas: There is normal echogenicity of the visualized pancreas. There is a 1 cm x 1.1 cm x 0.6 cm hypoechoic nodule in the body of the pancreas. This is unchanged. Right Kidney: Normal size of the right kidney. The right kidney measures 10.6 cm x 4.8 cm x 4.9 cm. Normal renal cortex. The right cortex measures 1.9 cm. Stable small right renal cysts. There is no right hydronephrosis. US/ABD Limited w/ Elastography IMPRESSION: 1. Liver stiffness measures 5.6 kPa compatible with F0-F1 (Normal to mild liver fibrosis) Metavir score. Electronically Signed: Jose Ureña MD at 14:50 EST ,
== END | disposition home or self-care (01) ==
LOC: US 09:13
PROVIDERS: PCP Internal Medicine; Referring Provider Internal Medicine; Visit Provider Internal Medicine
DX: R79.89 Other specified abnormal findings of blood chemistry (principal)
CPT/HCPCS: 76705; 76981

== ENCOUNTER 2023-04-23 14:30 | Outpatient (RCR) | payer BC, SELFPAY ==
--- NOTE | 2023-03-09 15:47 | HP.PTEVAL_ITS ---
Patient's Visit Information Visit Information Visit Information: DILIA SPENCER is a 63 year old F referred to Physical Therapy by NATHAN Flowers with a diagnosis of R GRACE. DOS: 03/06/23. Date of Evaluation: 03/09/23 Physical Therapist: Bryan Gaffney DPT Visit Plan Frequency: 3x /Week Duration: 6 Weeks Plan: 1) start with WBing functional mobility progress stability in gait. 2) RLE strengthening of glutes, hip abductors, quads and HS. 3) gait training and stair negotiation. ice for pain control. Subjective Subjective: Pt. is here today for her initial evaluation with diagnosis of R GRACE. DOS: 03/06/23. Pt. arrives with FWW with good use. Pt. reports taking pain meds as prescribed. Pt. reports having some trouble sleeping, but no major is sues. No N/T noted, no calf pain, no dizziness or fever noted. Pt. in November had her other hip replaced as well. Overall pt. is pleased, no major issues noted. 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 Pt. has tried some of her exercises at home, but is having trouble lifting her leg in a straight leg position. Pt. is doing the rest of her activities well with some mild pain. Pt. is hopeful to go back to work in 6-8 weeks. 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 Pain R hip: Pain Intensity (Out of 10): 4 Pain Intensity Range: 2 and 8 Objective Objective: POSTURE: Pt. has fairly good posture in stance. Pt. has slight increase in wt. shift to L side. Pt. has slight flexed posture as well. PALPATION: Pt. has tenderness along anterior incision. No signs of infection noted. Negative Homans sign NEURO: Pt. is able to rise on heels and toes without issues. Pt. has normal sensation in BLEs. Normal distal DTR. ROM: R hip: flexion 90deg, abd 35deg, ext not tested. ER/IR not tested. MMT: LLE: ankle/knee 5/5 throughout. hip: flexion 5-/5, abd 4+/5, ext 5-/5. RLE: ankle 5/5 throughout; knee; ext 4+/5, flexion 4/5; hip: flexion 3/5, abd 3- /5, , ext not tested. GAIT: Pt. is able to ambulate FWW with good motion and control. Pt. has some pain with testing, but overall doing well. She was able to walk short distances without AD, but has some increased lateral sway, but no LOB. TU.9sec with FWW 30 sec sit to stand rep test: 12 without use of UEs Balance/Special Test Scores TUG Test Time Seconds: 28.9 30 Second Chair Rise Test Seconds: 10 WOMAC Total Score: 47 WOMAC Percentatge: 51.0500 Goals Goal 1:: LTG: Pt. to be I with HEP. Goal 2:: LTG: Pt. to have increased RLE strength symmetrical to LLE without increase in symptoms allowing for increased stability and return to all work activities. Goal Time Frame: 6-8 Weeks Goal 3:: STG: Pt. to ambulate with normalized gait pattern without use of AD. Goal Time Frame: 2-4 Weeks Goal 4:: LTG: Pt. to negotiate 1 flight of stairs with 1 HR with reciprocal pattern. Goal Time Frame: 4-6 Weeks Goal 5:: LTG: pt. to sleep without increase in symptoms. Goal Time Frame: 4-6 Weeks Goal 6:: LTG: Pt to complete TUG assessment under 8 seconds indicating normal functional mobility. Goal Time Frame: 4-6 Weeks Rehabilitation Potential Physical Therapy Diagnosis: Pt. has signs and symptoms consistent with R GRACE with DOS: 03/06/23. Pt. has marked difficulty with walking, hypomobility, weakness, and increased pain. Pt. would benefit from PT to address the above owen itations progressing back to all recreational and work activities. Rehabilitation Potential: Excellent Anticipated Interventions Patient/Client Instruction: Educate patient on: Condition, Plan of Care, Risk Factors and Benefits of Fitness Program For the Purpose of:: To facilitate caregiver knowledge, To improve self management, To prevent re-injury, To improve ability to perform tasks related to life management and To improve tolerance to ADL's Therapeutic Exercise to Include: Strength training, Power training, Endurance training, Balance training, Postural training, Flexibilty training, Gait and locomotor training, Passive ROM and Active ROM For the Purpose of:: To decrease pain, To decrease swelling/inflammation, To increase ROM, To improve nutrient delivery to tissue, To increase oxygenation perfusion, To improve muscle performance and motor function, To improve ability to perform ADL's, To increase tolerance to activity/condition/position, To improve performance and independence with ADL's, To improve gait and locomotor functions, To improve health of tissue, To decrease soft tissue restriction, To increase flexibility/ROM and To improve endurance Cryotherapy (ice pack, ice massage): Yes For the Purpose of:: To decrease pain, To decrease swelling/inflammation and To increase ROM Text: Thank you for the opportunity to evaluate your patient. For Medicare and Medicare HMO plans, please review the plan of care and approve it. It will need to be FAXED BACK to us at [phone] for Medicare purposes. For Medicare only, by signing this I certify the plan of care. Please let me know if there are questions or concerns regarding this plan of care. Physician Signature: Date:
--- NOTE | 2023-04-14 08:47 | HP.PTREVAL ---
Re-Evaluation Intro: NATHAN Flowers, It has been my pleasure to treat DILIA SPENCER over the last 11 visits for R GRACE. DOS: 03/06/23. Please see the progress note below for an update on the physical therapy plan of care! Subjective Subjective: Pt. is overall doing well. Pt. reports being 75% better overall. Pt. is walking upto .5 miles. Pt. is no longer using an AD. Pt. reports being HEP compliant. She is c/o increased tissue thickness around her incision. Objective Objective/Function: TU.3sec no AD MMT: Pt. is basically symmetrical with all strength except, hip abd off by 5# overall doing great. STAIRS: Pt. has good tolerance with out HR to ascend, 1 HR to descend. Pt. walked .5 miles in 10:05sec on [place] prior to PT. ROM: Pt. has good ROM throughout BLEs, except she is pretty tight into R quad length, measured in prone. Much more tight on R side compared to L side. SLS: R side 8sec, L side 29sec Patient also has marked increased tissue thickness around incision. She is overall doing very well. 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 I would like to work on R tissue restriction, quad stretching and SLS balance in order to progress back to all recreational and work activities. Plan Plan Plan: I am asking for 2 more weeks x4 visits total to work on quad stretching, single leg balance and the tissue thickness around her anterior incision. Balance/Gait/Functional tests Balance/Special Test Scores TUG Test Time Seconds: 6.3 Tug Test: <10 sec.=free mobile 30 Second Chair Rise Test Seconds: 10 WOMAC Total Score: 13 WOMAC Percentage: 86.4600 Goals Goals Goal 1:: LTG: Pt. to be I with HEP. Goal Progress: Goal Met Goal 2:: LTG: Pt. to have increased RLE strength symmetrical to LLE without increase in symptoms allowing for increased stability and return to all work activities. Goal Time Frame: 6-8 Weeks Goal Progress: Goal Met Goal 3:: STG: Pt. to ambulate with normalized gait pattern without use of AD. Goal Time Frame: 2-4 Weeks Goal Progress: Goal Met Goal 4:: LTG: Pt. to negotiate 1 flight of stairs with 1 HR with reciprocal pattern. (MET) NEW GOAL: Pt. to have equal quad muslce length from side to side. Goal Time Frame: 4-6 Weeks Goal Progress: Progressing Goal 5:: LTG: pt. to sleep without increase in symptoms. (goal met). New goal: Pt. to have symmetrical SLS time between BLEs. Goal Time Frame: 4-6 Weeks Goal Progress: Progressing Goal 6:: LTG: Pt to complete TUG assessment under 8 seconds indicating normal functional mobility. Goal Time Frame: 4-6 Weeks Goal Progress: Goal Met Anticipated Interventions Anticipated Interventions Patient/Client Instruction: Educate patient on: Condition, Plan of Care, Risk Factors and Benefits of Fitness Program For the Purpose of:: To facilitate caregiver knowledge, To improve self management, To prevent re-injury, To improve ability to perform tasks related to life management and To improve tolerance to ADL's Therapeutic Exercise to Include: Strength training, Power training, Endurance training, Balance training, Postural training, Flexibilty training, Gait and locomotor training, Passive ROM and Active ROM For the Purpose of:: To decrease pain, To decrease swelling/inflammation, To increase ROM, To improve nutrient delivery to tissue, To increase oxygenation perfusion, To improve muscle performance and motor function, To improve ability to perform ADL's, To increase tolerance to activity/condition/position, To improve performance and independence with ADL's, To improve gait and locomotor functions, To improve health of tissue, To decrease soft tissue restriction, To increase flexibility/ROM and To improve endurance Cryotherapy (ice pack, ice massage): Yes For the Purpose of:: To decrease pain, To decrease swelling/inflammation and To increase ROM Re-Evaluation Ending Re-evaluation ending: Please do not hesitate to contact me at [phone] by phone or if you have questions or concerns regarding this new plan of care! Sincerely, Bryan Gaffney DPT
--- NOTE | 2023-08-03 09:28 | HP.PT.NRP ---
Patient Information Patient Information: DILIA SPENCER was seen in my office for initial evaluation on 03/09/23. The following Plan of Care was established for this patient: POC Established Initial Frequency: 3x /Week Initial Duration: 6 Weeks Anticipated Interventions Patient/Client Instruction: Educate patient on: Condition, Plan of Care, Risk Factors and Benefits of Fitness Program For the Purpose of:: To facilitate caregiver knowledge, To improve self management, To prevent re-injury, To improve ability to perform tasks related to life management and To improve tolerance to ADL's Therapeutic Exercise to Include: Strength training, Power training, Endurance training, Balance training, Postural training, Flexibilty training, Gait and locomotor training, Passive ROM and Active ROM For the Purpose of:: To decrease pain, To decrease swelling/inflammation, To increase ROM, To improve nutrient delivery to tissue, To increase oxygenation perfusion, To improve muscle performance and motor function, To improve ability to perform ADL's, To increase tolerance to activity/condition/position, To improve performance and independence with ADL's, To improve gait and locomotor functions, To improve health of tissue, To decrease soft tissue restriction, To increase flexibility/ROM and To improve endurance Cryotherapy (ice pack, ice massage): Yes For the Purpose of:: To decrease pain, To decrease swelling/inflammation and To increase ROM Last Seen Last Seen: This patient was last seen in our office 04/23/23. Pertinent comments regarding their Physical therapy will appear below: Pt. was seen for her GRACE. Pt. at her last visit was doing very well. She was back to recreational walking and gym exercises. She was to follow up with PT if needed. She has not been back to PT in several months and will be DC from PT at this point in time. At this point I will be discontinuing this patient from physical therapy. I would be happy to see this patient again in the future if found appropriate by the physician. Thank you! Bryan Gaffney, DPT Balance/Gait/Functional tests Balance/Special Test Scores TUG Test Time Seconds: 6.3 Tug Test: <10 sec.=free mobile 30 Second Chair Rise Test Seconds: 10 WOMAC Total Score: 13 WOMAC Percentage: 86.4600
== END 2023-04-23 19:00 | disposition home or self-care (01) ==
LOC: PT 14:30
PROVIDERS: PCP Internal Medicine; Referring Provider Physician Assistant Surgical; Visit Provider Physician Assistant Surgical
DX: M16.11 Unilateral primary osteoarthritis, right hip (principal); M25.551 Pain in right hip
CPT/HCPCS: 97110; 97161; 97164

== ENCOUNTER → 2024-06-01 | Outpatient (CLI) | payer MEDICARE, OTHER, SELFPAY ==
--- NOTE | 2024-06-01 14:33 | BI_ITS ---
PROCEDURE: SCRN MAMM (CAD)W/REBA BILAT REASON FOR EXAM: F, Age 64 y/o, routine annual mammogram. No family history. TECHNIQUE: Bilateral screening digital breast tomosynthesis with 2D and 3D images. Computer aided detection. COMPARISON: Comparison is made with prior study dated August 19, 2022. FINDINGS: The breasts are heterogeneously dense which may obscure small masses. Stable bilateral axillary lymph nodes. No suspicious masses, areas of developing architectural distortion, or suspicious calcifications. BI/SCRN MAMM (CAD)W/REBA BILAT IMPRESSION: BI-RADS 2: BENIGN. RECOMMEND ANNUAL MAMMOGRAPHIC SCREENING. Follow-up code: Routine Follow-up The patient will be notified of the results by letter. Reading Location: [place] [id number]
== END | disposition home or self-care (01) ==
PROVIDERS: PCP Internal Medicine; Referring Provider Internal Medicine; Visit Provider Internal Medicine
DX: Z12.31 Encounter for screening mammogram for malignant neoplasm of breast (principal)
CPT/HCPCS: 77063; 77067